=== PATIENT | female | born 1995 | race Native Hawaiian/Other Pacific Islander ===

== ENCOUNTER 2017-06-18 21:47 | Emergency (ER) | payer OTHER ==
[~2017-06-18] VITALS: Ht 162.6 cm; Wt 77.6 kg
[2017-06-18] MEDS ORDERED: CALNA PO (23:02)
[2017-06-18] MEDS ORDERED: PROM25TA52 PO (23:03)
[2017-06-18] MEDS ORDERED: ONDA4TAB3 PO (23:03)
[2017-06-18] MEDS ORDERED: B6 FOLIC ACD PO (23:03)
[2017-06-19 01:23] LABS: PLATELET COUNT 186 K/uL (152-353)
[2017-06-19 01:27] LABS: POTASSIUM 3.2 mmol/L (3.6-5.2)
[2017-06-19 04:01] VITALS: BP 125/70; TEMP 98.3
== END 2017-06-19 04:04 | disposition home or self-care (01) ==
LOC: ED 21:47
PROVIDERS: Specialist
DX: N10 Acute pyelonephritis (principal); Z33.1 Pregnant state, incidental
CPT/HCPCS: 80048; 81000; 85027; 87040; 87077; 87086; 87088; 87186; 99284; J0696

== ENCOUNTER 2017-06-22 12:56 | Emergency (ER) | payer OTHER ==
[~2017-06-22] VITALS: Ht 162.6 cm; Wt 90.7 kg
[~2017-06-22 12:56] MED LIST: B6 FOLIC ACD PO; CALNA PO; ONDA4TAB3 PO; PROM25TA52 PO
[2017-06-22 13:13] VITALS: TEMP 97.3
[2017-06-22 14:18] LABS: PLATELET COUNT 248 K/uL (152-353)
[2017-06-22 14:54] LABS: POTASSIUM 4.1 mmol/L (3.6-5.2)
[2017-06-22 16:10] VITALS: BP 118/76
== END 2017-06-22 16:20 | disposition home or self-care (01) ==
LOC: ED 12:56
PROVIDERS: Emergency Medicine
DX: N12 Tubulo-interstitial nephritis, not specified as acute or chronic (principal)
CPT/HCPCS: 80053; 81000; 82150; 83690; 84702; 85027; 96365; 96374; 99284; J2405

== ENCOUNTER 2017-09-23 10:30 | Emergency (ER) | payer OTHER ==
[~2017-09-23] VITALS: Ht 162.6 cm; Wt 81.6 kg
[2017-09-23 12:28] VITALS: BP 137/76; TEMP 98
== END 2017-09-23 12:28 | disposition home or self-care (01) ==
LOC: ED 10:30
DX: O26.893 Other specified pregnancy related conditions, third trimester (principal); M54.9 Dorsalgia, unspecified
CPT/HCPCS: 99282

== ENCOUNTER 2017-09-23 17:05 | Outpatient (CLI) | payer OTHER | END 2017-09-23 17:27 | disposition short-term general hospital (02) | LOC: AMB 17:05 | DX: M54.89 Other dorsalgia (principal) | CPT/HCPCS: A0425; A0427 ==

== ENCOUNTER 2017-10-01 11:17 | Outpatient (CLI) | payer OTHER | END 2017-10-01 19:20 | disposition home or self-care (01) | LOC: INF 11:17 | DX: N12 Tubulo-interstitial nephritis, not specified as acute or chronic (principal) | CPT/HCPCS: 96372; J1335 ==

== ENCOUNTER 2017-10-02 14:18 | Outpatient (CLI) | payer OTHER | END 2017-10-02 19:49 | disposition home or self-care (01) | LOC: INF 14:18 | DX: N12 Tubulo-interstitial nephritis, not specified as acute or chronic (principal) | CPT/HCPCS: 96372; J1335 ==

== ENCOUNTER 2017-10-03 10:36 | Outpatient (CLI) | payer OTHER | END 2017-10-03 13:00 | disposition home or self-care (01) | LOC: INF 10:36 | DX: O23.03 Infections of kidney in pregnancy, third trimester (principal); E87.2 Acidosis; E16.2 Hypoglycemia, unspecified; N13.2 Hydronephrosis with renal and ureteral calculous obstruction; O09.899 Supervision of other high risk pregnancies, unspecified trimester; A41.9 Sepsis, unspecified organism | CPT/HCPCS: 96372; J1335 ==

== ENCOUNTER 2017-10-05 11:53 | Outpatient (CLI) | payer OTHER | END 2017-10-05 20:12 | disposition home or self-care (01) | LOC: INF 11:53 | DX: N12 Tubulo-interstitial nephritis, not specified as acute or chronic (principal) | CPT/HCPCS: 96372; J1335 ==

== ENCOUNTER 2017-10-06 18:34 | Outpatient (CLI) | payer OTHER | END 2017-10-06 20:00 | disposition home or self-care (01) | LOC: INF 18:34 | DX: N12 Tubulo-interstitial nephritis, not specified as acute or chronic (principal) | CPT/HCPCS: 96372; J1335 ==

== ENCOUNTER 2018-09-29 14:49 | Outpatient (CLI) | payer OTHER | END 2018-09-29 14:58 | disposition short-term general hospital (02) | LOC: AMB 14:49 | DX: G89.18 Other acute postprocedural pain (principal); N23 Unspecified renal colic | CPT/HCPCS: A0425; A0429 ==

== ENCOUNTER 2018-09-29 14:59 | Emergency (ER) | payer OTHER ==
[~2018-09-29] VITALS: Ht 162.6 cm; Wt 72.6 kg
[2018-09-29 14:59] VITALS: TEMP 98.8
[2018-09-29 16:25] VITALS: BP 128/77
== END 2018-09-29 16:25 | disposition home or self-care (01) ==
LOC: ED 15:11
DX: N23 Unspecified renal colic (principal); N39.0 Urinary tract infection, site not specified; Z98.890 Other specified postprocedural states
CPT/HCPCS: 81000; 87088; 96372; 99283; J1885